=== PATIENT | female | born 1945 | race Caucasian/White ===

== ENCOUNTER 2024-04-03 13:36 | Emergency (ER) | payer MEDICARE, OTHER ==
[~2024-04-03] VITALS: Ht 162.6 cm; Wt 64.0 kg
[2024-04-03 13:44] VITALS: BP 152/92
[2024-04-03 13:45] VITALS: BP 172/94
[2024-04-03] MEDS ORDERED: KETOROLAC TROMETHAMINE 30 MG/ML SDV IM ONE (13:50)
[2024-04-03] MEDS ORDERED: LIDOCAINE 2% (20 MG/ML) MDV NB ONE (13:50)
[2024-04-03 14:00] VITALS: BP 161/84
[2024-04-03 14:16] VITALS: BP 161/90
[2024-04-03] MEDS ORDERED: diazePAM 10 MG/2 ML VIAL IM ONE (14:30)
[2024-04-03] MEDS ORDERED: KEFLEX500 MG PO (14:47)
[2024-04-03 14:59] VITALS: BP 161/90
== END 2024-04-03 14:59 | disposition home or self-care (01) ==
LOC: ED 13:36
PROC: 0HDRXZZ Extraction of Toe Nail, External Approach (ICD-10-PCS; principal; 2024-04-03)
DX: S91.211A Laceration without foreign body of right great toe with damage to nail, initial encounter (principal); I10 Essential (primary) hypertension; J45.909 Unspecified asthma, uncomplicated; W22.8XXA Striking against or struck by other objects, initial encounter; Y92.007 Garden or yard of unspecified non-institutional (private) residence as the place of occurrence of the external cause